=== PATIENT | female | born 1995 | race Caucasian/White ===

== ENCOUNTER 2016-09-11 02:23 | Emergency (ER) | payer MEDICAID ==
[2016-09-11 02:33] VITALS: RESP 16; O2SAT 97
[2016-09-11] MEDS ORDERED: IBUPROFEN 600 MG TAB PO ONE ×2 (03:30→03:48)
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
[2016-09-11 03:54] VITALS: BP 132/63; PULSE 81; TEMP 98.1
== END 2016-09-11 03:47 | disposition home or self-care (01) ==
PROC: 0HQ0XZZ Repair Scalp Skin, External Approach (ICD-10-PCS; principal; 2016-09-11)
DX: S01.01XA Laceration without foreign body of scalp, initial encounter (principal); J45.909 Unspecified asthma, uncomplicated; W20.8XXA Other cause of strike by thrown, projected or falling object, initial encounter; Y92.89 Other specified places as the place of occurrence of the external cause